=== PATIENT | male | born 1945 | race Caucasian/White ===

== ENCOUNTER 2025-07-19 14:00 | Emergency (ER) | payer OTHER ==
[2025-07-19 15:08] LABS: Glucose, Urine (Dipstick) Normal (Negative); Leukocyte 500 (Negative); Protein, Urine (Dipstick) 100 mg/dl (Neg-Trace); Specific Gravity, Urine 1.020 (1.005-1.030)
[2025-07-19 15:32] LABS: CAUTI Indications for Culture Pelvic or flank pain; RBC/HPF Greater than 50 HPF (0-3); WBC/HPF Greater than 50 HPF (0-3)
[2025-07-19 15:34] LABS: Bacteria/HPF 3+ HPF (None Seen); Mucous/LPF 1+ LPF (<2+)
[2025-07-19 15:35] LABS: Urine Culture Reflex Yes Yes
[2025-07-19] MEDS ORDERED: Lidocaine 1% PF 5 ML VIAL ONE (16:00)
[2025-07-19] MEDS ORDERED: cefTRIAXone (ROCEPHIN) 1 GM VIAL ONE (16:01)
== END 2025-07-19 16:05 | disposition home or self-care (01) ==
LOC: CSHERS 14:00
DX: N39.0 Urinary tract infection, site not specified (principal); I10 Essential (primary) hypertension
CPT/HCPCS: 81001; 87077; 87086; 96372; 99283; J0696